=== PATIENT | female | born 1965 | race Caucasian/White ===

== ENCOUNTER 2017-02-01 15:44 | Emergency (ER) | payer MEDICAID ==
[2017-02-01 15:59] VITALS: TEMP 97.9
--- NOTE | 2017-02-01 16:41 | RAD ---
PROCEDURE: Left Ankle Radiographs. HISTORY: ankle pain COMPARISON: None available. FINDINGS: BONES: Faint lucency at the distal fibula favored to reflect vascular groove rather than nondisplaced fracture. Correlate clinically in order to assess for point tenderness. No acute displaced fracture. JOINTS: No dislocation. SOFT TISSUES: Soft tissue swelling. No evidence of radiopaque foreign body. OTHER FINDINGS: None. IMPRESSION: Soft tissue swelling. Faint lucency at the distal fibula favored to reflect vascular groove rather than nondisplaced fracture. Correlate clinically in order to assess for point tenderness.
--- NOTE | 2017-02-01 16:46 | C.PDOC ---
History Of Present Illness 51 y/o female presents to ED with complaints of left ankle pain. Patient states she was walking and fell twisting left ankle. She reports similar injury last year. Denies head trauma. Patient denies loc, numbness, weakness, other injuries or any other complaints at this time. Time Seen by Provider: 02/01/17 15:59 Chief Complaint (Nursing): Lower Extremity Problem/Injury History Per: Patient History/Exam Limitations: no limitations Onset/Duration Of Symptoms: Days Current Symptoms Are (Timing): Still Present - Ankle/Foot Description Of Injury: Twisted Past Medical History Reviewed: Historical Data, Nursing Documentation, Vital Signs Vital Signs: Last Vital Signs Temp 97.9 F 02/01/17 15:59 Pulse 86 02/01/17 15:59 Resp 20 02/01/17 15:59 BP 117/79 02/01/17 15:59 Pulse Ox 99 02/01/17 16:53 - Medical History PMH: Asthma Surgical History: No Surg Hx Family History: States: No Known Family Hx - Social History Hx Alcohol Use: No Hx Substance Use: No - Immunization History Hx Tetanus Toxoid Vaccination: No Hx Influenza Vaccination: No Hx Pneumococcal Vaccination: No Review Of Systems Except As Marked, All Systems Reviewed And Found Negative. Eyes: Negative for: Vision Change Cardiovascular: Negative for: Chest Pain Respiratory: Negative for: Shortness of Breath Gastrointestinal: Negative for: Nausea, Vomiting Musculoskeletal: Positive for: Other (ankle pain). Negative for: Foot Pain Skin: Negative for: Rash Neurological: Negative for: Weakness, Numbness, Dizziness Physical Exam - Physical Exam Appears: Well, Non-toxic, No Acute Distress Skin: Normal Color, Warm, Dry, No Rash Head: Atraumatic, Normacephalic Eye(s): bilateral: Normal Inspection, PERRL, EOMI Oral Mucosa: Moist Neck: Normal ROM, Supple Chest: Symmetrical Pelvic: Normal External Exam (no bony tenderness) Extremity: Normal ROM (abrasion to R knee. no other breaks in skin. Distal pulses intact), No Pedal Edema, No Calf Tenderness, Capillary Refill (<2 seconds ), No Deformity, Other (left lower ankle tenderness and swelling) Extremity: Bilateral: Normal ROM Pulses: Left Dorsalis Pedis: Normal, Right Dorsalis Pedis: Normal Neurological/Psych: Oriented x3, Normal Speech, Normal Motor, Normal Sensation Gait: Steady ED Course And Treatment O2 Sat by Pulse Oximetry: 99 (RA) Pulse Ox Interpretation: Normal - Other Rad left ankle X-Ray: Viewed By Me, Read By Radiologist Interpretation: PROCEDURE: Left Ankle Radiographs. HISTORY: ankle pain. COMPARISON: None available. FINDINGS: BONES: Faint lucency at the distal fibula favored to reflect vascular groove rather than nondisplaced fracture. Correlate clinically in order to assess for point tenderness. No acute displaced fracture. JOINTS: No dislocation. SOFT TISSUES: Soft tissue swelling. No evidence of radiopaque foreign body. OTHER FINDINGS: None. IMPRESSION: Soft tissue swelling. Faint lucency at the distal fibula favored to reflect vascular groove rather than nondisplaced fracture. Correlate clinically in order to assess for point tenderness. Medical Decision Making Medical Decision Making: Tetanus updated and bacitracin applied to R knee abrasion. Xray showed "Soft tissue swelling. Faint lucency at the distal fibula favored to reflect vascular groove rather than nondisplaced fracture. Correlate clinically in order to assess for point tenderness." Patient has swelling at lateral malleolus. Spoke with daughter at length about need for follow-up. Patient was placed in an hiral wrap and instructed to rest, ice, compress and elevate. Disposition - Disposition Disposition: HOME/ ROUTINE Disposition Time: 17:01 Condition: GOOD Additional Instructions: Rest, ice, compress and elevate left ankle. Motrin for pain. Return to ED if condition worsens. Follow-up with PMD Instructions: Ankle Sprain (ED) Forms: [id number] (Cam[place]onian) Print Language: [id number] - Clinical Impression Clinical Impression: Ankle sprain - PA / EVENT PROMOTIONS COORDINATOR / Resident Statement MD/DO has examined the patient and agrees with the treatment plan. - Scribe Statement The provider has reviewed the documentation as recorded by the Tezibsam Greenberg All medical record entries made by the Tezibsam were at my direction and personally dictated by me. I have reviewed the chart and agree that the record accurately reflects my personal performance of the history, physical exam, medical decision making, and the department course for this patient. I have also personally directed, reviewed, and agree with the discharge instructions and disposition.
[2017-02-01] MEDS ORDERED: Bacitracin 500 Units/gm Oint Foilpak UD TOP ONE (16:50)
[2017-02-01] MEDS ORDERED: Bacitracin 500 Units/gm Oint Foilpak UD ONE (16:54)
[2017-02-01 17:09] VITALS: BP 110/72; PULSE 80; RESP 18; O2SAT 100
== END 2017-02-01 17:09 | disposition home or self-care (01) ==
LOC: C.ER 15:44
DX: S93.402A Sprain of unspecified ligament of left ankle, initial encounter (principal); S80.211A Abrasion, right knee, initial encounter; W18.30XA Fall on same level, unspecified, initial encounter; Y93.01 Activity, walking, marching and hiking